=== PATIENT | male | born 2000 | race American Indian/Alaskan Native ===

== ENCOUNTER 2019-12-05 02:31 | Emergency (ER) | payer SELFPAY ==
[2019-12-05] MEDS ORDERED: HYDROmorphone 1 MG/1 ML INJ IV ONE (03:16)
--- NOTE | 2019-12-05 03:40 | XRay Report ---
RIGHT SHOULDER 2 VIEWS INDICATION / CLINICAL INFORMATION: injury COMPARISON: None available. FINDINGS: BONES / JOINT(S): There is dislocation of the right shoulder. No fracture is seen. SOFT TISSUES: No significant abnormality. ADDITIONAL FINDINGS: None. Signer Name: Guevara Kramer MD Signed: 12/05/2019 3:36 AM Workstation Name: [id number]
[2019-12-05] MEDS ORDERED: LIDOCAINE (2%) 20 MG/1 ML VIAL 20 ML MDV INFILTRATI ONE (03:45)
[2019-12-05] MEDS ORDERED: LIDOCAINE (1%) 10 MG/1 ML VIAL 20 ML MDV ONE (03:46)
--- NOTE | 2019-12-05 03:59 | Emergency Department Report ---
ED Upper Extremity Inj HPI - General Chief Complaint: Extremity Injury, Upper Stated Complaint: DISLOCATED R SHOULDER Time Seen by Provider: 12/05/19 03:03 Source: patient, EMS Mode of arrival: Ambulatory Limitations: Physical Limitation - History of Present Illness Initial Comments: 19-year-old male presents the ED with dislocated right shoulder. Patient reports previous history of right shoulder dislocation multiple times. Patient states he was doing push-ups and then stretched and felt his shoulder come out. Patient states this happened several hours ago at around 12 midnight. Complaint: Injury to:: right, shoulder -: hour(s) (3) Other Injuries: none Improves With: immobilization Worsens With: movement of extremity Context: other (stretching arms) Associated Symptoms: denies other symptoms - Related Data Previous Rx's Medication Instructions Recorded Last Taken Type Naproxen [Naprosyn] 500 mg PO BID #20 tablet 12/05/19 Unknown Rx traMADoL [Ultram] 50 mg PO Q6HR PRN #7 tablet 12/05/19 Unknown Rx Allergies Allergy/AdvReac Type Severity Reaction Status Date / Time No Known Allergies Allergy Verified 12/05/19 03:55 ED Review of Systems ROS: Stated complaint: DISLOCATED R SHOULDER Other details as noted in HPI Comment: All other systems reviewed and negative Musculoskeletal: as per HPI Neurological: denies: weakness, numbness, paresthesias ED Past Medical Hx - Social History Smoking Status: Never Smoker Substance Use Type: None - Medications Home Medications: Home Medications Medication Instructions Recorded Confirmed Last Taken Type Naproxen [Naprosyn] 500 mg PO BID #20 tablet 12/05/19 Unknown Rx traMADoL [Ultram] 50 mg PO Q6HR PRN #7 tablet 12/05/19 Unknown Rx ED Physical Exam - General Limitations: Physical Limitation General appearance: alert, in no apparent distress - Head Head exam: Present: atraumatic, normocephalic - Eye Eye exam: Present: normal appearance - ENT ENT exam: Present: mucous membranes moist - Neck Neck exam: Present: normal inspection - Respiratory Respiratory exam: Present: normal lung sounds bilaterally. Absent: respiratory distress - Cardiovascular Cardiovascular Exam: Present: regular rate, normal rhythm - GI/Abdominal GI/Abdominal exam: Absent: distended - Extremities Exam Extremities exam: Present: other (deformity noted to right shoulder) - Neurological Exam Neurological exam: Present: alert, oriented X3. Absent: motor sensory deficit - Psychiatric Psychiatric exam: Present: normal affect, normal mood - Skin Skin exam: Present: warm, dry, intact, normal color. Absent: rash ED Course Vital Signs 12/05/19 12/05/19 12/05/19 02:45 05:27 05:29 Temperature 98.3 F Pulse Rate 90 89 Pulse Rate [ 82 Intra-Procedure ] Pulse Rate [ 71 Post-Procedure] Pulse Rate [Pre 95 H -Procedure] Respiratory 16 16 Rate Respiratory 13 Rate [Intra- Procedure] Respiratory 18 Rate [Post- Procedure] Respiratory 15 Rate [Pre- Procedure] Blood Pressure 131/80 Blood Pressure 134/93 [Intra- Procedure] Blood Pressure 142/101 [Post-Procedure ] Blood Pressure 135/90 [Pre-Procedure] O2 Sat by Pulse 100 Oximetry O2 Sat by Pulse 100 Oximetry [ Intra-Procedure ] O2 Sat by Pulse 100 Oximetry [Post -Procedure] O2 Sat by Pulse 100 Oximetry [Pre- Procedure] - Joint Aspiration/Injection Consent Obtained: written consent Time Out Performed: Yes Indications: injection of medication Side of Body: right Joint Aspirated: shoulder Ultrasound Guidance: No Skin Prep: Chlorhexidene Local Anesthesia Used: Lidocaine 1% Needle Size Used: 18G Syringe Size Used: 10cc Medication Injected, if any: Lidocaine Amount of Medication Injected (mls): 10 Patient Tolerated Procedure: well Complications: none - Moderate Sedation Indications: fracture/dislocation redu ASA Class: I Mallampati Airway Score: 1 Preparation: air sampling and monitoring applied, pulse oximeter, supplemental O2 applied IV Etomidate Dose (mgs): 10 Complications: none Patient Tolerated Procedure: well - Orthopedic Joint Reduction Joint #1 Consent Obtained: written consent Time Out Performed: Yes Side: right Joint Reduction Location: shoulder Analgesia: moderate sedation Local Anesthetic Used: Lidocaine 1% Amount of Anesthetic Used (mls): 10 Shoulder Technique Used (if applicable): external rotation Post-Reduction Neuro Exam: intact Post-Reduction Vascular Exam: intact Post Reduction X-Ray Obtained: Yes Post Reduction X-Ray Results: reduced Splint Applied: Yes Patient Tolerated Procedure: well ED Medical Decision Making - Radiology Data Radiology results: report reviewed, image reviewed - Medical Decision Making Right shoulder dislocation successfully reduced. Patient advised to follow-up with orthopedic surgeon. Will discharge at this time. Prescriptions given. - Differential Diagnosis Dislocation, fracture Critical care attestation.: If time is entered above; I have spent that time in minutes in the direct care of this critically ill patient, excluding procedure time. ED Disposition Clinical Impression: Recurrent dislocation, right shoulder Disposition: - TO HOME OR SELFCARE Is pt being admited?: No Condition: Stable Instructions: Shoulder Dislocation (ED), Moderate Sedation (ED) Prescriptions: Naproxen [Naprosyn] 500 mg PO BID #20 tablet traMADoL [Ultram] 50 mg PO Q6HR PRN #7 tablet PRN Reason: Pain Referrals: MARIA R TAVARES MD [Staff Physician] - 3-5 Days
[2019-12-05] MEDS ORDERED: ETOMIDATE 20 MG/10 ML INJ IV ONE ×2 (04:37→07:40)
--- NOTE | 2019-12-05 05:32 | XRay Report ---
RIGHT SHOULDER 2 VIEWS INDICATION / CLINICAL INFORMATION: s/p reduction COMPARISON: None available. FINDINGS: BONES / JOINT(S): No fracture is seen. There has been successful reduction of right shoulder dislocat ion. SOFT TISSUES: No significant abnormality. ADDITIONAL FINDINGS: None. Signer Name: Guevara Kramer MD Signed: 12/05/2019 5:28 AM Workstation Name: [id number]
[2019-12-05 06:46] VITALS: BP 137/86
== END 2019-12-05 06:50 | disposition home or self-care (01) ==
LOC: ED 02:31
DX: S43.004A Unspecified dislocation of right shoulder joint, initial encounter (principal); Z79.899 Other long term (current) drug therapy; X50.0XXA Overexertion from strenuous movement or load, initial encounter; Y93.89 Activity, other specified; Y92.89 Other specified places as the place of occurrence of the external cause; Y99.8 Other external cause status
CPT/HCPCS: 23650; 73030; 96374; 99284; J1170